=== PATIENT | female | born 1995 | race Caucasian/White ===

== ENCOUNTER 2024-12-13 13:25 | Emergency (ER) | payer OTHER ==
[~2024-12-13] VITALS: Ht 182.9 cm; Wt 123.3 kg
[2024-12-13] MEDS ORDERED: TETRACAINE HCL 0.5% 4 ML BTL OD SCH (14:30)
[2024-12-13] MEDS ORDERED: ERYTHROMYCIN1 GM OP (14:47)
[2024-12-13] MEDS ORDERED: MAGNESIUM SULFATE 2 GM/50 ML BAG IV ONE (15:00)
[2024-12-13] MEDS ORDERED: ERYTHROMYCIN 3.5 GM HOME.PACK OP ONE (15:00)
[2024-12-13 15:06] VITALS: BP 115/71
== END 2024-12-13 15:11 | disposition home or self-care (01) ==
LOC: ED 13:25
DX: T26.11XA Burn of cornea and conjunctival sac, right eye, initial encounter (principal); X10.2XXA Contact with fats and cooking oils, initial encounter; Y93.G2 Activity, grilling and smoking food; Y92.511 Restaurant or cafe as the place of occurrence of the external cause; Y99.0 Civilian activity done for income or pay
CPT/HCPCS: 99283